=== PATIENT | female | born 2000 | race Asian ===

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

== ENCOUNTER 2024-10-09 17:11 | Emergency (ER) | payer OTHER, SELFPAY ==
[2024-10-09 17:14] VITALS: BP 136/87; PULSE 115; RESP 18; TEMP 36.4; O2SAT 98
--- NOTE | 2024-10-09 18:05 | PC.NURSE ---
salome noted to let labia. I& D incision noted from yesterday's procedure. patient reports increase in pain and swelling. Denies fevers.
[2024-10-09] MEDS: KETOROLAC 30 MG/ML VIAL IM (18:11)
--- NOTE | 2024-10-15 11:04 | ED.SKABFB ---
HPI - Skin/Abscess/Foreign Bdy <Keyur Briscoe PA-C - Last Filed: 10/15/24 18:03> General Chief complaint: Skin/Abscess/Foreign Body Stated complaint: pelvic pain, sent by [facility] Time Seen by Provider: 10/09/24 17:39 Source: patient Mode of arrival: Ambulatory Limitations: no limitations History of Present Illness HPI narrative: 24-year-old female presents to the ED with 3 days of left labial swelling, pain. Patient was seen in the walk-in clinic yesterday, and I and D was attempted which expressed very little fluid, no drain was placed. Patient comes to the ED today since her symptoms persist. No fever, chills, nausea, vomiting. Related Data Allergies Allergy/AdvReac Type Severity Reaction Status Date / Time No Known Drug Allergies Allergy Verified 10/08/24 11:36 Review of Systems <Keyur Briscoe PA-C - Last Filed: 10/15/24 18:03> Constitutional Constitutional: Denies chills, Denies fatigue, Denies fever(s), Denies frequent falls, Denies lethargy and Denies weakness Eyes Eyes: Denies change in vision, Denies eye discharge, Denies irritation and Denies loss of vision ENT Ears, Nose, Mouth, and Throat: Denies change in voice, Denies dizziness, Denies neck pain, Denies sore throat and Denies throat swelling Cardiovascular Cardiovascular: Denies chest pain, Denies irregular heart rhythm, Denies lightheadedness, Denies palpitations, Denies dyspnea, Denies dyspnea on exertion and Denies orthopnea Respiratory Respiratory: Denies cough, Denies dyspnea, Denies dyspnea on exertion and Denies wheezing Gastrointestinal Gastrointestinal: Denies abdominal pain, Denies change in bowel habits, Denies diarrhea, Denies nausea and Denies vomiting Genitourinary Comments: Left labial swelling, pain Musculoskeletal Musculoskeletal: Denies neck pain and Denies numbness Integumentary/Breasts Skin/Breast: Denies pruritus, Denies erythema, Denies rash and Denies wounds Neurologic Neurologic: Denies behavioral changes, Denies confusion, Denies dizziness, Denies frequent falls, Denies loss of vision, Denies numbness and Denies weakness Psychiatric Psychiatric: Denies anxiety, Denies behavioral changes, Denies confusion, Denies depression, Denies homicidal ideation and Denies suicidal ideation Endocrine Endocrine: Denies fatigue, Denies flushing and Denies palpitations Hematologic/Lymphatic Hematologic/Lymphatic: Denies easy bruising Allergic/Immunologic Allergic/Immunologic: Denies urticaria, Denies throat swelling and Denies wheezing Patient History <Keyur Briscoe PA-C - Last Filed: 10/15/24 18:03> Medical History Family history non-contributory Social History Smoking Status: Current every day smoker Smoking Status: Current every day smoker tobacco type: vaping alcohol intake frequency: 0-2 drinks per day Exam <Keyur Briscoe PA-C - Last Filed: 10/15/24 18:03> Narrative Exam Narrative: Const General:?cooperative, healthy appearing and comfortable HENWA Head:?normal to inspection Ears:?hearing grossly normal bilaterally Nose:?external nose normal Face and sinus:?normal facial exam and sinuses nontender Mouth:?oral mucosae normal Throat:?posterior oropharynx normal Eyes General:?appearance normal, both eyes and all related structures Neck Neck:?normal visual inspection and no lymphadenopathy noted Resp Effort & Inspection:?normal respiratory effort Auscultation:?clear to auscultation bilaterally Cardio Rate:?regular rate Rhythm:?regular rhythm There appears to be a Bartholin gland cyst/abscess in the 4 o'clock position on the left labia. There is some induration, however no fluctuance. There is some overlying erythema, tenderness to palpation. Small incision from the prior I and D is noted, however no drain noted on exam Neuro General:?patient alert, patient awake and patient oriented x3 Initial Vital Signs Initial Vital Signs: Vital Signs Temperature 97.6 F 10/09/24 17:14 Pulse Rate 115 H 10/09/24 17:14 Respiratory Rate 18 10/09/24 17:14 Blood Pressure 136/87 10/09/24 17:14 Pulse Oximetry 98 10/09/24 17:14 Oxygen Delivery Method Room Air 10/09/24 17:14 <Kishor Spear MD - Last Filed: 10/23/24 08:29> Initial Vital Signs Initial Vital Signs: Vital Signs Temperature 97.6 F 10/09/24 17:14 Pulse Rate 115 H 10/09/24 17:14 Respiratory Rate 18 10/09/24 17:14 Blood Pressure 136/87 10/09/24 17:14 Pulse Oximetry 98 10/09/24 17:14 Oxygen Delivery Method Room Air 10/09/24 17:14 Course <Keyur Briscoe PA-C - Last Filed: 10/15/24 18:03> Orders Ordered: Discontinued Medications Ketorolac Tromethamine (Ketorolac 30 Mg/Ml Vial) 30 mg IM NOW ONE Stop: 10/09/24 18:06 Last Admin: 10/09/24 18:11 Dose: 30 mg Documented By: [facility] <Kishor Spear MD - Last Filed: 10/23/24 08:29> Orders Ordered: Discontinued Medications Ketorolac Tromethamine (Ketorolac 30 Mg/Ml Vial) 30 mg IM NOW ONE Stop: 10/09/24 18:06 Last Admin: 10/09/24 18:11 Dose: 30 mg Documented By: LEYDA MDM - Skin/Abscess/Foreign Bdy <Keyur Briscoe PA-C - Last Filed: 10/15/24 18:03> MDM Narrative Medical decision making narrative: 24-year-old female presents to the ED with 3 days of left labial swelling, pain. On exam, there appears to be a Bartholin gland cyst/abscess in the 4 o'clock position on the left labia. There is some induration, however no fluctuance. An I&D was not attempted today, since the abscess did not seem loculated enough to incise. Patient was started on antibiotics due to the developing abscess and overlying erythema. Recommend follow-up with PCP/puller through. ED return precautions discussed with patient. Patient verbalized understanding. Medical records reviewed: Yes Discharge Plan Departure Patient Disposition: Home Clinical Impression: Bartholin cyst Instructions: DI for Bartholin Gland Cyst Activity Restrictions/Additional Instructions: You were evaluated in the ED today for a Bartholin gland cyst. You are being prescribed antibiotics for it. Please take them as prescribed. Please follow-up with your PCP in 2-3 days for further evaluation. Return to the ED if your symptoms worsen. Referrals: Jojo Tony MD [Primary Care Provider] - Stand Alone Forms: Patient Portal/API/Survey ED Sign-out <Kishor Spear MD - Last Filed: 10/23/24 08:29> Cosign ED Attending Cosignature Attestation: I was immediately available in the department for consultation. ?This documentation has been reviewed and I agree with assessment and plan. Supervised by Kishor Spear MD
== END 2024-10-09 18:16 | disposition home or self-care (01) ==
PROVIDERS: Emergency Provider Student in an Organized Health Care Education/Training Program; PCP Internal Medicine
DX: N75.0 Cyst of Bartholin's gland (principal)
CPT/HCPCS: 96372; 99283; J1885